=== PATIENT | female | born 1960 | race Caucasian/White ===

== ENCOUNTER 2017-09-03 11:45 | Emergency (ER) | payer OTHER ==
[~2017-09-03] VITALS: Wt 87.2 kg
[2017-09-03] MEDS ORDERED: IBUPROFEN 600 MG TAB PO ONE (12:30)
--- NOTE | 2017-09-03 12:31 | ERD ---
ER Documentation Chief Complaint Chief Complaint mcneal, earache, bodyaches HPI 57 year old female otherwise healthy comes in with headache, right ear pain, congestion, sore throat, cough for 2 days. She describes generalized body aches. She reports she has ear pressure on the right side, no otorrhea or discharge. No chest pain, shortness of breath, hemoptysis. ROS All systems reviewed and are negative except as per history of present illness. Medications Home Meds Active Scripts Carbamide Peroxide* (Debrox*) 6.5% - 15 Ml Drops, 10 DROP BOTH EARS BID, #1 BOTTLE Prov:SAWYER YING PA-C 09/03/17 Benzonatate* (Tessalon Perle*) 100 Mg Capsule, 100 MG PO Q8H Y for COUGH, #30 CAP Prov:SAWYER YING PA-C 09/03/17 Ibuprofen* (Motrin*) 600 Mg Tab, 600 MG PO Q6, #30 TAB Prov:SAWYER YING PA-C 09/03/17 PMhx/Soc Hx Miscellaneous Medical Probl: Yes (obesity ) Hx Substance Use: No Physical Exam Vitals Vital Signs Date Time Temp Pulse Resp B/P Pulse Ox O2 Delivery O2 Flow Rate FiO2 09/03/17 11:47 100.4 114 20 130/74 99 Recheck temp was 98, pulse 86. Physical Exam General: obese female, no acute distress HEENT: Head is normocephalic, atraumatic. No scleral icterus. Pupils are equal , round, and reactive. Oral mucous membranes are moist. No erythema, no exudate , uvula midline. Bilateral TMs are obscured from obstructed cerumen. Neck: Supple. Nontender. Lungs: Clear to auscultation. Normal air movement. Heart: Regular rate and rhythm. S1 and S2 are normal. No murmurs, gallops, or rubs. Abdomen: Soft, nontender, nondistended. Bowel sounds are normoactive. Extremities: No clubbing or cyanosis. Normal pulses. Moving extremities x 4. No weakness. Neurologic: Alert and oriented 3. No focal deficits. Skin: Normal turgor. No rash or lesions. Results 24 hrs Current Medications Medications (Trade) Dose Ordered Sig/Dona Route PRN Reason Start Time Stop Time Status Last Admin Dose Admin Ibuprofen (Motrin) 600 mg ONCE ONCE PO 09/03/17 12:30 09/03/17 12:31 DC 09/03/17 12:40 Procedures/MDM Course: Her pain is treated with ibuprofen 600 mg. Ear lavage was done to remove cerumen on the right ear. The patient is a 57-year-old female who comes in with an acute upper respiratory infection, presumed viral. The patient has a differential diagnosis of a viral upper respiratory infection, bacterial upper respiratory infection, bronchitis, pneumonia, pharyngitis, laryngitis, epiglottitis, croup, pneumonia. Patient has a normal pulmonary examination, clear breath sounds, normal pulse oximetry, with no corrective measures needed at this time. Fluids, rest, antipyretics were encouraged. Patient is a most likely from a viral etiology, patient will be given Debrox to the area, Tessalon and ibuprofen. Departure Diagnosis: Primary Impression: Viral syndrome Additional Impression: Cerumen impaction Condition: SAWYER Savage PA-C Sep 03, 2017 12:31
[2017-09-03] MEDS ORDERED: IBUP-1542 PO (14:19)
[2017-09-03] MEDS ORDERED: BENZ100C70 PO (14:19)
[2017-09-03] MEDS ORDERED: CARB15DR50 BOTH EARS (14:19)
== END 2017-09-03 14:33 | disposition home or self-care (01) ==
LOC: FTE 11:45
DX: B34.9 Viral infection, unspecified (principal); H61.21 Impacted cerumen, right ear
CPT/HCPCS: 69209; Z7502; Z7610

== ENCOUNTER 2017-12-03 10:14 | Emergency (ER) | END 2017-12-03 14:16 | disposition home or self-care (01) ==